=== PATIENT | female | born 1995 | race Hispanic/Latino ===

== ENCOUNTER 2022-05-05 19:42 | Observation (INO) | payer OTHER ==
[~2022-05-05] VITALS: Ht 152.4 cm; Wt 87.1 kg
[2022-05-05] MEDS ORDERED: KETOROLAC TROMETHAMINE 30 MG/ML VIAL IV STA ×2 (20:56→21:10)
[2022-05-05] MEDS ORDERED: DEXAMETHASONE SOD PHOS INJ 4 MG/ML SDV IV ONE (21:00)
[2022-05-05] MEDS: SODIUM CHLORIDE 0.9% 1000ML 1,000 ML IV SCH (21:18)
[2022-05-05] MEDS ORDERED: DEXAMETHASONE SOD PHOS INJ 4 MG/ML SDV ONE (21:28)
[2022-05-05] MEDS ORDERED: SODIUM CHLORIDE 0.9% 100 ML ONE (21:29)
[2022-05-05] MEDS ORDERED: SODIUM CHLORIDE 0.9% 1000ML 1,000 ML ONE (21:29)
[2022-05-05] MEDS ORDERED: Ampicillin/Sulbactam 3 GM Vial ONE (21:29)
[2022-05-05] MEDS ORDERED: KETOROLAC TROMETHAMINE 30 MG/ML VIAL ONE (21:29)
[2022-05-05] MEDS ORDERED: IOPAMIDOL 370 MG/ML 100 ML INFUS..BTL INJ ONE (22:51)
[2022-05-06] MEDS ORDERED: SODIUM CHLORIDE FLUSH 10 ML SYR INJ PRN (01:00)
[2022-05-06] MEDS ORDERED: ONDANSETRON HCL INJ 2MG/ML 2ML 2 MG/ML VIAL IV PRN (01:00)
[2022-05-06] MEDS ORDERED: KETOROLAC TROMETHAMINE 30 MG/ML VIAL IV PRN (03:00)
[2022-05-06 12:54] VITALS: BP 123/67
[2022-05-06 12:55] VITALS: BP 123/67
[2022-05-06 17:06] VITALS: BP 111/58
[2022-05-06] MEDS: SODIUM CHLORIDE 0.9% 1000ML 1,000 ML IV SCH (18:39)
[2022-05-07 06:10] LABS: BASOPHILS % 0.3 % (0.0-1.0); EOSINOPHILS # (AUTO) 0.3 (0.0-0.4); HEMATOCRIT 34.4 % (34.2-44.1); HEMOGLOBIN 12.1 g/dL (12.0-16.0); LYMPHOCYTES % 33.2 % (18.0-39.1); MEAN CORPUSCULAR HEMOGLOBIN 32.5 pg (28-32); MEAN CORPUSCULAR HGB CONC 35.2 g/dL (31-35); MEAN CORPUSCULAR VOLUME 92.5 fL (81-99); MONOCYTES # (AUTO) 0.7 (0.2-0.8); MONOCYTES % 8.2 % (4.4-11.3); NEUTROPHILS % 54.6 % (38.7-80.0); PLATELET COUNT 262 x10e3/uL (140-360); RED BLOOD COUNT 3.72 x10e6/uL (3.6-5.1); RED CELL DISTRIBUTION WIDTH 15.9 % (11.7-14.4)
[2022-05-07 06:26] LABS: ALBUMIN 3.3 g/dL (3.5-5.0); ANION GAP 13.5 mmol/L (8-16); CALCIUM 8.9 mg/dL (8.4-10.2); CREATININE, SERUM 0.69 mg/dL (0.57-1.11); POTASSIUM 3.5 mmol/L (3.5-5.1)
[2022-05-07] MEDS ORDERED: AUGMENTIN (07:51)
[2022-05-07] MEDS ORDERED: KETOROLAC TROME10 MG PO (08:05)
[2022-05-07] MEDS ORDERED: AUGMENTIN 500-1 EACH PO (08:05)
[2022-05-07 08:07] VITALS: BP 105/59
[2022-05-07 08:08] VITALS: BP 105/59
== END 2022-05-07 09:14 | disposition home or self-care (01) ==
LOC: FSED 20:14 → ERHOLD 05-06 01:01 → MED/SURG2 05-06 12:44
PROVIDERS: ADMIT Family Medicine Adult Medicine; ATTEND Family Medicine Adult Medicine
DX: K04.7 Periapical abscess without sinus (principal); R60.9 Edema, unspecified; J45.909 Unspecified asthma, uncomplicated; E66.9 Obesity, unspecified; Z20.822 Contact with and (suspected) exposure to COVID-19; Z68.39 Body mass index [BMI] 39.0-39.9, adult
CPT/HCPCS: 36415; 70487; 80053 ×2; 81025; 85025 ×2; 96365; 96374; 96376; 99284; G0378 ×2; J0295 ×2; J1100; J1885 ×2; J7030 ×2; J7050 ×2; Q9967; U0002